=== PATIENT | male | born 1955 | race Caucasian/White ===

== ENCOUNTER 2018-03-30 13:50 | Emergency (ER) | payer OTHER ==
[2018-03-30 13:58] VITALS: BP 140/81
[2018-03-30] MEDS ORDERED: PROPARACAINE 0.5% OPHTH DROPS 15 ML LEFTEYE STA (14:51)
--- NOTE | 2018-03-30 15:17 | ED Physician Documentation ---
PD HPI OPHTHO - Stated complaint Stated Complaint: EYE IRRITATION - Chief complaint Chief Complaint: Heent - History obtained from History obtained from: Patient, Family - History of Present Illness Timing - onset: Enter time (1100), Today Timing - duration: Hours Timing - details: Abrupt onset, Still present Location: Right Quality / character: Burning, Throbbing, Sharp Associated symptoms: Redness, Tearing, FB sensation. No: Decreased vision Contributing factors: FB Similar symptoms before: Diagnosis (corneal abrasion) Recently seen: Not recently seen - Additional information Additional information: 63-year-old male was working outside got some cedar dust into his right eye. He now has a foreign body sensation and a lot of pain. He is not able to open his eye because of the pain. Review of Systems Constitutional: denies: Fever Eyes: reports: Irritation. denies: Decreased vision Ears: denies: Loss of hearing, Ear pain Nose: denies: Congestion Respiratory: denies: Cough GI: denies: Vomiting PD PAST MEDICAL HISTORY - Past Medical History Past Medical History: Yes Cardiovascular: None Respiratory: None Endocrine/Autoimmune: None GI: None : None HEENT: Other Psych: None Musculoskeletal: None Derm: None - Past Surgical History Past Surgical History: No - Present Medications Home Medications: Ambulatory Orders Medication Instructions Recorded Confirmed Neomycin/Poly/Dexam Ophth Oint 0.25 inch RIGHTEYE BID #1 tube 03/30/18 [Maxitrol Ophth Oint] - Allergies Allergies/Adverse Reactions: Allergies Allergy/AdvReac Type Severity Reaction Status Date / Time No Known Drug Allergies Allergy Verified 03/30/18 13:58 - Social History Does the pt smoke?: No Smoking Status: Never smoker Does the pt drink ETOH?: Yes Does the pt have substance abuse?: No - Immunizations Immunizations are current?: Yes - POLST Patient has POLST: No PD ED PE NORMAL - Vitals Vital signs reviewed: Yes - General General: Alert and oriented X 3, Well developed/nourished, Other (The patient is clutching his eye on the right side and appears to be in pain ) - HEENT HEENT: Atraumatic, PERRL, EOMI, Other (There is no obvious foreign body to the conjuctiva. There is a tiny FB on the everted eyelid and this is removed with a q-tip. There is an obvious corneal abrasion to the center of the visual field and there is surrounding superficial abrasion with flurocein uptake. 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 canning 2-12 intact, No motor deficit, No sensory deficit, Normal speech Eye Opening: Spontaneous Motor: Obeys Commands Verbal: Oriented GCS Score: 15 - Psych Psych: Normal mood, Normal affect Results - Vitals Vitals: Vital Signs - 24 hr 03/30/18 13:56 Temperature 36.5 C Heart Rate 66 Respiratory 16 Rate Blood Pressure 140/81 H O2 Saturation 100 Oxygen O2 Source Room air PD MEDICAL DECISION MAKING - ED course Complexity details: considered differential, d/w patient, d/w family ED course: 63-year-old male with a deep corneal abrasion to the right thigh has a lot of relief with the Alcaine drops and a small foreign body is removed from the upper lid after it is everted. Departure - Departure Disposition: 01 Home, Self Care Clinical Impression: Corneal abrasion Qualifiers: Encounter type: initial encounter Laterality: right Qualified Code(s): S05.01XA - Injury of conjunctiva and corneal abrasion without foreign body, right eye, initial encounter Condition: Stable Instructions: ED Eye Injury Corneal Abrasion Follow-Up: Franck Beyer MD [Provider Admit Priv/Credential] - Prescriptions: Neomycin/Poly/Dexam Ophth Oint [Maxitrol Ophth Oint] 0.25 inch RIGHTEYE BID #1 tube
== END 2018-03-30 15:29 | disposition home or self-care (01) ==
LOC: ED 13:50
DX: S05.01XA Injury of conjunctiva and corneal abrasion without foreign body, right eye, initial encounter (principal); S00.251A Superficial foreign body of right eyelid and periocular area, initial encounter; X58.XXXA Exposure to other specified factors, initial encounter; Y93.89 Activity, other specified
CPT/HCPCS: 99283; J3490

== ENCOUNTER 2019-06-07 09:47 | Outpatient (CLI) | payer MEDICARE | END 2019-06-07 23:59 | disposition short-term general hospital (02) | LOC: EMS 09:47 | PROVIDERS: ATTEND Surgery | DX: R07.9 Chest pain, unspecified (principal); R61 Generalized hyperhidrosis; R11.0 Nausea; R26.81 Unsteadiness on feet | CPT/HCPCS: A0425; A0427 ==

== ENCOUNTER 2021-05-19 09:25 | Outpatient (CLI) | payer SELFPAY | END 2021-05-19 09:26 | disposition short-term general hospital (02) | LOC: EMS 09:25 | DX: R00.2 Palpitations (principal) | CPT/HCPCS: A0425; A0427 ==